=== PATIENT | male | born 1940 | race Caucasian/White ===

== ENCOUNTER → 2017-09-23 | Outpatient (CLI) | payer OTHER, MEDICARE ==
[~2017-09-23] MED LIST: ASPI81TA28 PO; COEN1CAP17 PO; LISI-787 PO; LPR25 PO; OMEG10007 PO; SIMV80TA2 PO; TAMS0.4C38 PO
== END | disposition home or self-care (01) ==
LOC: C.PATHSPEC 16:45
PROVIDERS: ATTEND Dermatology
DX: L57.0 Actinic keratosis (principal)

== ENCOUNTER 2019-02-24 09:14 | Inpatient (IN) ==
--- NOTE | 2019-02-05 10:46 | Anesthesiology Consultation ---
Date of Service February 05, 2019 Assessment & Plan (1) Encounter for pre-operative examination: Chart Review Chart Review: Acceptable Risk for Surgery and Patient NOT seen in Pre Admission Testing History Surgery Operation Date: 02/24/19 11:20 Proposed Procedures p Right Robotic Video Assisted Thoracoscopy with Right Upper Lobectomy with Mediastinal Lymphadenectomy - Nathan Fong MD, FACS Height/Weight Height: 5 ft 10 in Weight: 79.379 kg Allergies Allergy/AdvReac Type Severity Reaction Status Date / Time No Known Allergies Allergy Verified 02/05/19 10:18 Medications Home Medications Medication Instructions Recorded Confirmed Last Taken coenzyme Q10 200 mg capsule 200 mg PO DAILY cap 01/06/19 02/05/19 Unknown lisinopril 20 mg tablet 20 mg PO BID #180 tab 01/06/19 02/05/19 02/05/19 metoprolol tartrate 25 mg tablet 25 mg PO BID #180 tab 01/06/19 02/05/19 02/05/19 metoprolol tartrate 50 mg tablet 50 mg PO BID #180 tab 01/06/19 02/05/19 simvastatin 80 mg tablet 80 mg PO HS #90 tab 01/06/19 02/05/19 02/04/19 lorazepam 0.5 mg tablet 0.5 mg PO BID PRN #30 tab 01/18/19 02/05/19 Unknown amlodipine 2.5 mg PO QPM 02/05/19 02/05/19 02/04/19 aspirin [Aspir-81] 81 mg PO DAILY 02/05/19 02/05/19 02/05/19 citalopram 10 mg PO QAM 02/05/19 02/05/19 02/05/19 finasteride 5 mg PO QPM 02/05/19 02/05/19 02/04/19 tamsulosin 0.4 mg PO QPM 02/05/19 02/05/19 02/04/19 Past Medical History Medical History Anemia hgb stable in 10-11 range per chart review Anxiety CKD (chronic kidney disease) baseline creatinine 1.5-1.8 per chart review Enlarged prostate History of skin cancer Hyperlipidemia Hypertension Lung mass Past Family History Family History Other Family history of cancer in mother Past Surgical History Surgical History History of colonoscopy History of left cataract surgery History of right cataract surgery History of tonsillectomy Social History Smoking Status: Former smoker tobacco type: cigarettes Smoking cigarettes per day: LESS THAN 20 Hx Alcohol Use: Yes Alcohol type: wine alcohol intake frequency: other Hx Substance Use: No substance use type: does not use Testing Laboratory Results 02/04/19 WBC 8.74 H/H 10.7/35.0 PLATELETS 222 SODIUM 139 POTASSIUM 4.6 CHLORIDE 109 CO2 25 BUN 34 CREATININE 1.48 GLUCOSE 105 PT 10.6 PTT 27.5 INR 1.0 Electrocardiogram Date: 02/04/19 Findings: + NSR @ (60) Chest X-Ray Date: 01/26/19 Atherosclerosis of the aortic arch. Cardiac silhouette normal in size. Re- demonstration of the right upper lung mass. This consistent with primary bronchogenic neoplasm until proven otherwise. Other Testing PET CT skull to thigh: 02/01/19: Initial PET/CT demonstrates FDG avid 4.7 cm right apical lung mass consistent with primary bronchogenic neoplasm. Mildly FDG avid right hilar lymph node suspicious for metastatic involvement. No additional sites of disease.
[~2019-02-24 09:14] MED LIST changes: -ASPI81TA28 PO; -COEN1CAP17 PO; -LISI-787 PO; -LPR25 PO; +LR 15ML/HR IV SCH; -OMEG10007 PO; -SIMV80TA2 PO; -TAMS0.4C38 PO
[2019-02-24] MEDS ORDERED: LIDOCAINE HCL 2% 2 ML VIAL/AMP(20MG/ML) INFIL ONE (10:10)
[2019-02-24] MEDS ORDERED: PROPOFOL IV EMULSION 10 MG/ML 20 ML VIAL IV ONE (10:10)
[2019-02-24] MEDS ORDERED: ONDANSETRON INJ 2 MG/ML 2 ML VIAL ONE (10:10)
[2019-02-24] MEDS ORDERED: MIDAZOLAM HCL 1 MG/ML 2ML VIAL ONE (10:10)
[2019-02-24] MEDS ORDERED: fentaNYL citrate 100 MCG/2 ML VIAL ONE ×3 (10:10→15:38)
[2019-02-24] MEDS ORDERED: ROCURONIUM BROMIDE 10 MG/ML 5 ML VIAL ONE (10:10)
[2019-02-24] MEDS ORDERED: ATROPINE SULFATE 0.1 MG/ML 10ML SYR IV PRN (10:27)
[2019-02-24] MEDS ORDERED: ONDANSETRON INJ 2 MG/ML 2 ML VIAL IV PRN ×2 (10:27→16:59)
[2019-02-24] MEDS ORDERED: ePHEDrine sulfate 50 MG/ML AMP IV PRN (10:27)
--- NOTE | 2019-02-24 10:32 | History & Physical Bridge Note ---
Date of Service February 24, 2019 History & Physical Bridge Note I have examined the patient, reviewed the History & Physical and in the interval since the performance of the History & Physical I have noted the following changes of clinical significance: no changes noted
[2019-02-24] MEDS ORDERED: SODIUM CHLORIDE 0.9% PF 50 ML VIAL ONE (10:49)
[2019-02-24] MEDS ORDERED: BUPIVACAINE 0.5 % 5 MG/1 ML MPF 30ML VIAL ONE (10:49)
[2019-02-24] MEDS ORDERED: BUPIVACAINE LIPOSOME 1.3% 266 MG/20 ML VIAL ONE (10:50)
[2019-02-24] MEDS ORDERED: CEFAZOLIN 2,000 MG/15 ML IV PUSH IV ONE (11:07)
[2019-02-24] MEDS ORDERED: CEFAZOLIN 250 MG/ML 1 GM VIAL ONE (12:04)
[2019-02-24] MEDS ORDERED: PHENYLEPHRINE 100MCG/ML 5ML SYR ONE (12:18)
[2019-02-24] MEDS ORDERED: ePHEDrine sulfate 50 MG/ML AMP ONE (12:18)
[2019-02-24] MEDS ORDERED: SURGICEL ABSORB HEMOSTAT 2IN X 14IN TOP ONE (12:41)
[2019-02-24] MEDS ORDERED: NEOSTIGMINE METHYLSULFATE 5 MG/5 ML SYR ONE (14:50)
[2019-02-24] MEDS ORDERED: GLYCOPYRROLATE 0.2 MG/ML VIAL ONE (14:50)
[2019-02-24] MEDS ORDERED: METOCLOPRAMIDE HCL INJ 5 MG/ML 2 ML VIAL IV ONE (15:20)
[2019-02-24] MEDS: fentaNYL citrate 100 MCG/2 ML VIAL IV PRN ×4 (15:40→15:55)
--- NOTE | 2019-02-24 15:48 | XRay Report ---
XR chest 1V portable CLINICAL HISTORY: RUL COMPARISON STUDY: Chest radiograph February 10, 2019. PET/CT February 01, 2019. FINDINGS: Right apical chest tube is in place. Postoperative findings within the right lung are noted . A small right apical pneumothorax with pleural separation of 5 mm is noted. There is a trace left p leural effusion. Lung volumes are diminished. Left basilar opacity is noted. There is no evidence for pulmonary edema. Cardiomegaly is again noted. IMPRESSION: 1. Right apical chest tube in place. Small right apical pneumothorax. 2. Mild left basilar opacity and a suspected trace left pleural effusion. Electronically signed by: Alonso Collazo M.D. 02/24/2019 3:46 PM
[2019-02-24] MEDS: HYDROmorphone INJ 1 MG/ML SYRINGE IV PRN ×4 (16:00→16:15)
--- NOTE | 2019-02-24 16:08 | Anesthesiology Progress Note ---
Date of Service February 24, 2019 Anesthesia Post Procedure Vital Signs Vital Signs: Temp Pulse Resp BP Pulse Ox 02/24/19 09:53 36.6 C 63 16 140/76 97 Transfer of Care Handoff Completed per policy Notes Mental Status: alert / awake / arousable Patient Amnestic to Procedure: Yes Nausea / Vomiting: adequately controlled Pain: adequately controlled Airway Patency, RR, SpO2: stable & adequate BP & HR: stable & adequate Hydration State: stable & adequate Anesthetic Complications: no major complications apparent and Pt Satisfied with anesthetic care
--- NOTE | 2019-02-24 16:12 | Post Operative Brief Note ---
PG Immediate Post Op with CF Date of Surgery February 24, 2019 Pre & Post Diagnosis Operation Date: 02/24/19 11:20 Pre-Op Diagnosis: Right Lung Mass, Mediastinal Adenopathy Post-Op Diagnosis: non-small cell lung ca RUL Procedure Operation Date: 02/24/19 11:20 Actual Procedures p Right Robotic Video-Assisted Thoracoscopy, Right Upper Lobectomy,Right Upper Lobe Biopsy, and Mediastinal Lymphadenectomy(Right) - Nathan Fong MD, FACS Surgeon Nathan Fong MD, FACS Gravity Flow Irrigator Estelita ALANIZ Estimated Blood Loss 100 Findings Consistent with Post-Op Diagnosis Specimens Specimen Description: Frozen 1: Right Upper Lobe Mass - Need Diagnosis 2: Right Upper Lobe for Bronchial Margins - Need Diagnosis Permanent A: R9 Lymph Node x2 B: Level 7 Lymph Node x2 C: R8 Lymph Node x2 D: R11 Lymph Node x6 E: R10 Lymph Node x8 F: R4 Lymph Node G: R2 Lymph Node Culture 1: Right Upper Lobe Mass Drains Chest Tube (24 r. Thal chest tube) and Munoz Catheter (16 Fr. Munoz catheter)
--- NOTE | 2019-02-24 16:41 | Anesthesiology Progress Note ---
Date of Service February 24, 2019 Anesthesia Post Procedure Vital Signs Vital Signs: Temp Pulse Pulse Resp BP Pulse Ox 02/24/19 16:10 36 C L 70 16 100/62 97 02/24/19 16:00 66 16 106/52 L 96 02/24/19 15:50 68 18 106/60 98 02/24/19 15:40 68 18 117/61 98 02/24/19 15:30 71 16 108/63 100 02/24/19 15:24 36 C L 75 16 121/77 100 02/24/19 09:53 36.6 C 63 16 140/76 97 Pain Intensity Right Upper Lateral Chest: Pain Intensity: 4 Transfer of Care Handoff Completed per policy Notes Mental Status: alert / awake / arousable Patient Amnestic to Procedure: Yes Nausea / Vomiting: adequately controlled Pain: adequately controlled Airway Patency, RR, SpO2: stable & adequate BP & HR: stable & adequate Hydration State: stable & adequate Anesthetic Complications: no major complications apparent and Pt Satisfied with anesthetic care Notes: The patient is awake and his vital signs are stable. He has some incision site pain but is otherwise comfortable.
[2019-02-24] MEDS ORDERED: LORazepam 0.5 MG TAB PO PRN (16:59)
[2019-02-24] MEDS: MoRPHine SULFATE 2 MG/ML CARP IV PRN ×2 (17:40→22:53)
[2019-02-24] MEDS: METOCLOPRAMIDE HCL INJ 5 MG/ML 2 ML VIAL IV SCH (17:41)
[2019-02-24] MEDS: ACETAMINOPHEN 1,000 MG/100 ML VIAL IV SCH (18:28)
[2019-02-24] MEDS: OXYCODONE HCL IR 5 MG TAB (IMMEDIATE RELEASE) PO PRN (18:56)
--- NOTE | 2019-02-24 20:23 | Operative Report ---
DATE OF OPERATION: 02/24/2019 PREOPERATIVE DIAGNOSIS: Hypermetabolic mass, right upper lobe. POSTOPERATIVE DIAGNOSIS: Nonsmall cell lung carcinoma, right upper lobe. PROCEDURES: 1. Robot-assisted thoracoscopic excisional biopsy, right upper lobe mass. 2. Robot-assisted thoracoscopic right upper lobectomy and mediastinal lymphadenectomy. SURGEON: Nathan Fong MD. SERVICE PLUMBER: CORBIN Thomas. ANESTHESIA: General anesthesia, endotracheal double lumen tube. SPECIFICS OF PROCEDURE AND FINDINGS: Mr. Poole is a remarkably preserved 78-year-old male who was found to have a hypermetabolic mass in his right upper lobe. We worked him up and felt he would be a candidate for resection. I did an endobronchial ultrasound and did not find evidence of metastases in his mediastinal lymph nodes. On 02/24/2019, the patient was brought to the operating room and I performed a robot-assisted thoracoscopic excisional biopsy. The mass was simply too large for us to wedge out. I tried this, but we could not get around the entire mass as it would require removing half of the upper lobe. For this reason, I did an incisional biopsy and sent off a good amount of tissue; however, Dr. Vincenzo Bray from Pathology had difficulty stating whether this was a malignant process or not. For this reason, I elected to proceed with a right upper lobectomy as I felt sure based on his history of having no symptoms whatsoever and the appearance of this radiographically, we were dealing with a nonsmall cell lung carcinoma. We then performed an uncomplicated right upper lobectomy and mediastinal lymphadenectomy. There were few things to note and one was that he had calcified lymph nodes which were quite stuck, especially to the level 10 area, but we got these out. We did an Exparel block. He tolerated it well. PROCEDURE: The patient was brought to the operating room, laid in supine position. General anesthesia induced and endotracheal intubation performed with a double lumen tube. He was then placed in a left lateral decubitus position and he was administered prophylactic antibiotics. After prepped and draped in usual sterile fashion, timeout was called. We then placed a camera port at the seventh interspace and insufflated with CO2. Upon going in, we could see that there were really no adhesions whatsoever. We were able to see this mass immediately but it was not stuck to any parietal pleura. An 8 mm port was then placed anteriorly at about the seventh interspace just above the costal margin and we put another 8 mm port posteriorly in the seventh interspace and then put a 5 mm thoracic grasper closer to the spine from the lower interspace. I placed a needle and we were easily able to see this mass. I grasped it and we tried to wedge this out, but we were unable to do so. It was ripping the lung and we could not get all the way around this. For this reason, using the electrocautery, I wedged out a generous section and sent it for frozen section. While waiting for this, we continue taking down the inferior pulmonary ligament, biopsied level 7, 8, 9 nodes after cleaning up the level 7 subcarinal lymph node station. It was here that we saw how adherent and hard these lymph nodes were. By this time, we got the frozen section back, which showed no evidence of cancer; however, this mass was very large and he had no other symptoms. I made a decision that we were going to proceed with a lobectomy. I continued my dissection up and dissected out the level 10 node as well as level 2 and 4 nodes and 11 and 12 nodes. By removing these nodes, I opened up things quite nicely. I took the superior pulmonary vein with an Endo-DAVID stapler. This opened up the arteries nicely. I took the 3 right upper lobe arteries individually using the Endo-DAVID stapler. This worked out very nicely and then I was able to clean the bronchus off with some very hard and adherent lymph nodes and fired an Endo-DAVID stapler across the bronchus. This left us with just the fissures and we were able to complete these using the stapler. I was quite pleased with the case except for the fact that the middle lobe appeared to be on a pedicle. I was concerned about this, so I took after inflating the lung and seeing where it lay, I took the periphery of the upper lobe and middle lobe medially and stapled it together with single Endo-DAVID staple load. I then irrigated out the chest and saw no air leak at all. 266 mg of Exparel and 20 mL of solution had been mixed with 30 mL of 0.5% bupivacaine and 250 mL of normal saline I injected each of the port sites before we performed this operation and we also performed an intercostal nerve block from the 2nd through 11th rib. Of note, is that we had created an assistance port above the costal margin on the right, down a few interspaces. At the end of the case, we could see there was no air leak. Chest tube was directed towards the anterior thoracoscopy port towards the apex and sutured in place with heavy silk suture. A 0 Vicryl was used to close the muscle layers of the assistance port after we had used an Endobag and pulled the specimen out, enlarged it to about 4 cm. Each of the port sites were then closed with 4-0 Monocryl in running subcuticular fashion. The patient had no air leak and looked quite good at conclusion of the case. I attest to the content of the Intraoperative Record and any orders documented therein. Any exception s are noted below.
[2019-02-24] MEDS: D5W AND 1/2NSS 1,000 ML IV SCH (20:58)
[2019-02-24] MEDS: DOCUSATE SODIUM 100 MG CAP PO SCH (20:58)
[2019-02-24] MEDS: TAMSULOSIN HCL 0.4 MG CAP PO SCH (20:58)
[2019-02-24] MEDS: METOPROLOL TARTRATE 25 MG TAB PO SCH (20:59)
[2019-02-24] MEDS: SIMVASTATIN 80 MG TAB PO SCH (20:59)
[2019-02-24] MEDS: FINASTERIDE 5 MG TAB PO SCH (20:59)
[2019-02-24] MEDS: AMLODIPINE BESYLATE 5 MG TAB PO SCH (20:59)
[2019-02-24] MEDS ORDERED: METOPROLOL TARTRATE 50 MG TAB PO SCH (21:00)
[2019-02-24] MEDS: LISINOPRIL 20 MG TAB PO SCH (21:00)
[2019-02-25] MEDS: METOCLOPRAMIDE HCL INJ 5 MG/ML 2 ML VIAL IV SCH ×2 (01:11→08:09)
[2019-02-25] MEDS: ACETAMINOPHEN 1,000 MG/100 ML VIAL IV SCH (02:28)
[2019-02-25] MEDS: D5W AND 1/2NSS 1,000 ML IV SCH (05:33)
[2019-02-25] MEDS: MoRPHine SULFATE 2 MG/ML CARP IV PRN ×2 (05:36→07:40)
[2019-02-25 06:13] LABS: Basophils # (auto) 0.02 K/uL (0-0.2); Basophils % (auto) 0.2 %; Eosinophils # (auto) 0.18 K/uL (0-0.5); Eosinophils % (auto) 1.5 %; Hematocrit (blood only) 29.7 % (42-52); Hemoglobin 9.1 g/dL (14.0-18.0); Immature Granulocytes # (auto) 0.03 K/uL (0.00-0.02); Immature Granulocytes % (auto) 0.3 %; Lymphocytes # (auto) 1.49 K/uL (1.2-3.4); Lymphocytes % (auto) 12.6 %; Mean Corpuscular Volume 86.8 fL (80-100); Mean Platelet Volume 9.9 fL (7.4-10.4); Monocytes # (auto) 0.91 K/uL (0.11-0.59); Monocytes % (auto) 7.7 %; Neutrophils # (auto) 9.16 K/uL (1.4-6.5); Neutrophils % (auto) 77.7 %; Platelet Count 194 K/uL (130-400); RDW Coefficient of Variation 15.2 % (11.5-14.5); RDW Standard Deviation 48.5 fL (36.4-46.3); Red Blood Count 3.42 M/uL (4.7-6.1); White Blood Count 11.79 K/uL (4.8-10.8)
[2019-02-25 06:22] LABS: Mean Corpuscular Hgb Conc 30.6 g/dL (32-36)
[2019-02-25 06:29] LABS: BUN Creatinine Ratio 18.2 (10-20); Calcium 8.5 mg/dl (8.5-10.1); Creatinine Clr Calc Pharmacy 33.6 ml/min; Est GFR (Non-African American) 34.5; Potassium 4.8 mmol/L (3.5-5.1)
--- NOTE | 2019-02-25 07:21 | XRay Report ---
XR chest 1V portable HISTORY: 78 years-old Male RUL postoperative changes of the right lung COMPARISON: Chest radiograph 02/24/2019 TECHNIQUE: Portable AP view of the chest FINDINGS: Cardiac silhouette is enlarged, unchanged. Stable positioning of the right-sided chest tube. Tiny rig ht apical pneumothorax redemonstrated, pleural separation of 3 mm. Pulmonary vascular congestion with bibasilar opacities, progressed on the right. The lungs are hypoinflated. Mild gaseous distention of the stomach. Degenerative changes of the shoulders and spine. IMPRESSION: 1. Stable positioning of the right-sided chest tube with tiny right apical pneumothorax. 2. Cardiomegaly with pulmonary vascular congestion. 3. Bibasilar opacities redemonstrated, progressed about the right lung base. The above report was generated using voice recognition software. It may contain grammatical, syntax o r spelling errors. Electronically signed by: Gino Olivares M.D. 02/25/2019 7:20 AM
[2019-02-25] MEDS: METOPROLOL TARTRATE 25 MG TAB PO SCH ×2 (08:08→21:03)
[2019-02-25] MEDS: ASPIRIN 81 MG ECTAB PO SCH (08:08)
[2019-02-25] MEDS: LISINOPRIL 20 MG TAB PO SCH ×2 (08:08→21:04)
[2019-02-25] MEDS: DOCUSATE SODIUM 100 MG CAP PO SCH ×2 (08:09→21:03)
[2019-02-25] MEDS: CITALOPRAM 20 MG TAB PO SCH (08:09)
[2019-02-25] MEDS: ENOXAPARIN INJ 40 MG/0.4 ML SYR SQ SCH (08:09)
[2019-02-25] MEDS: ACETAMINOPHEN 325 MG TAB PO SCH ×3 (08:17→21:02)
[2019-02-25] MEDS ORDERED: NON-FORMULARY MEDICATION (Coenzyme Q10 200 MG) PO SCH (09:00)
--- NOTE | 2019-02-25 09:39 | Anesthesiology Progress Note ---
Date of Service February 25, 2019 Anesthesia Post Procedure Vital Signs Vital Signs: Temp Pulse Pulse Resp BP BP Pulse Ox 02/25/19 08:58 37.5 C 80 20 101/58 L 92 02/25/19 07:06 36.8 C 78 18 109/63 93 02/25/19 03:49 36.9 C 72 19 115/62 92 02/25/19 01:53 93 02/25/19 01:52 37.4 C 78 19 114/61 85 L 02/25/19 00:48 37.2 C 76 19 106/58 L 92 02/24/19 22:50 37.2 C 72 16 118/58 L 02/24/19 20:51 36.7 C 76 16 102/58 L 95 02/24/19 19:52 36.6 C 70 16 109/51 L 97 02/24/19 18:50 36.6 C 68 16 112/52 L 96 02/24/19 17:50 36.6 C 70 16 115/64 96 02/24/19 16:50 36.6 C 76 18 103/54 L 93 02/24/19 16:30 74 16 105/56 L 96 02/24/19 16:20 72 16 104/53 L 98 02/24/19 16:10 36 C L 70 16 100/62 97 02/24/19 16:00 66 16 106/52 L 96 02/24/19 15:50 68 18 106/60 98 02/24/19 15:40 68 18 117/61 98 02/24/19 15:30 71 16 108/63 100 02/24/19 15:24 36 C L 75 16 121/77 100 02/24/19 09:53 36.6 C 63 16 140/76 97 Pain Intensity Right Upper Lateral Chest: Pain Intensity: 5 Notes Mental Status: alert / awake / arousable and participated in evaluation Patient Amnestic to Procedure: Yes Nausea / Vomiting: adequately controlled Pain: adequately controlled Airway Patency, RR, SpO2: stable & adequate BP & HR: stable & adequate Hydration State: stable & adequate Anesthetic Complications: no major complications apparent and Pt Satisfied with anesthetic care
[2019-02-25] MEDS: OXYCODONE HCL IR 5 MG TAB (IMMEDIATE RELEASE) PO PRN ×2 (12:52→21:02)
--- NOTE | 2019-02-25 20:47 | Progress Note ---
DATE: 02/25/2019 HISTORY OF PRESENT ILLNESS: Mr. Poole is 1 day status post a robot-assisted thoracoscopic right upper lobectomy with mediastinal lymphadenectomy for nonsmall cell lung carcinoma. The patient is having some pain which is a bit surprising as it felt like we had given him a complete block. At any rate, he has no air leak. He has some serous drainage which is not very much. His x-ray looks good. He has been ambulating in the hallway. He is tolerating a regular diet. We left the Munoz catheter in, as he has had problems with retention in the past but was on Flomax and today he has been able to void. ASSESSMENT AND PLAN: Postop day #1, status post robot-assisted thoracoscopic right upper lobectomy with mediastinal lymphadenectomy. We may discharge him tomorrow or the next day depending on how he looks. I think it would be very helpful to get his chest tube out.
[2019-02-25] MEDS: TAMSULOSIN HCL 0.4 MG CAP PO SCH (21:03)
[2019-02-25] MEDS: SIMVASTATIN 80 MG TAB PO SCH (21:03)
[2019-02-25] MEDS: FINASTERIDE 5 MG TAB PO SCH (21:03)
[2019-02-25] MEDS: AMLODIPINE BESYLATE 5 MG TAB PO SCH (21:03)
[2019-02-26] MEDS: ACETAMINOPHEN 325 MG TAB PO SCH ×4 (01:05→19:24)
--- NOTE | 2019-02-26 07:29 | XRay Report ---
XR chest 1V portable HISTORY: Postop. Right upper lobectomy. COMPARISON: Chest 02/25/2019. FINDINGS: Right chest tube terminates in the right lung apex. No definite pneumothorax identified. Vo lume loss within the right hemithorax consistent with a postoperative change. Right perihilar airspac e opacity persists. The heart remains mildly enlarged. There are low lung volumes with mild pulmonary vascular congestion. IMPRESSION: Right chest tube terminates in the right lung apex. No definite pneumothorax. Pulmonary vascular curtis estion persists. Electronically signed by: Cong Beckwith M.D. 02/26/2019 7:28 AM
[2019-02-26] MEDS: LISINOPRIL 20 MG TAB PO SCH ×2 (08:45→20:57)
[2019-02-26] MEDS: CITALOPRAM 20 MG TAB PO SCH (08:46)
[2019-02-26] MEDS: DOCUSATE SODIUM 100 MG CAP PO SCH ×2 (08:46→20:58)
[2019-02-26] MEDS: METOPROLOL TARTRATE 25 MG TAB PO SCH (08:46)
[2019-02-26] MEDS: ASPIRIN 81 MG ECTAB PO SCH (08:46)
[2019-02-26] MEDS: ENOXAPARIN INJ 40 MG/0.4 ML SYR SQ SCH (08:46)
--- NOTE | 2019-02-26 09:30 | XRay Report ---
XR chest 1V portable HISTORY: 78 years-old Male chest tube removal status post removal of the right-sided chest tube COMPARISON: Chest radiograph 02/26/2019 at 7:00 AM TECHNIQUE: Portable AP view of the chest FINDINGS: Cardiomediastinal and hilar silhouettes are unchanged. Postoperative changes of the right hemithorax. Persistent right perihilar densities. Low lung volumes with mild pulmonary vascular congestion. Stat us post removal of the right-sided chest tube. No definite residual pneumothorax. Degenerative change s of the shoulders and spine. Mild gaseous distention of the stomach. IMPRESSION: Postoperative changes of the right lung redemonstrated. Status post removal of the right- sided chest tube without pneumothorax identified. The above report was generated using voice recognition software. It may contain grammatical, syntax o r spelling errors. Electronically signed by: Gino Olivares M.D. 02/26/2019 9:28 AM
[2019-02-26] MEDS ORDERED: METOPROLOL TARTRATE 1 MG/ML VIAL IV STA ×2 (11:21→12:51)
--- NOTE | 2019-02-26 11:29 | Urology Consultation ---
Date of Consultation February 26, 2019 Assessment & Plan (1) Postoperative urinary retention: POD #2 s/p thoracic surgery with UR. Indwelling Munoz draining clear yellow urine, not bothersome. Recommend maintaining Munoz x 7-10 days. Will arrange outpatient TOV and follow up in our clinic. Continue Tamsulosin. Thanks for allowing us to participate in the inpatient care of Mr. Poole. Please contact our service if we can be of further assistance during hospitalization. History of Present Illness Attending Physician: Nathan Fong MD, FACS History of Present Illness 78 YO male POD #2 s/p thoracic surgery with urinary retention. Has not been able to void spontaneously since anesthesia. Prior to surgery, baseline urination was good. Has never seen a Urologist, takes Tamsulosin per PCP x several years which works well. Feeling well today. No urinary pain. Munoz in place, not bothersome. No hematuria. Allergies Allergy/AdvReac Type Severity Reaction Status Date / Time No Known Allergies Allergy Verified 02/24/19 09:48 Home Medications Home Medications Medication Instructions Recorded Confirmed Type lisinopril 20 mg tablet 20 mg PO BID #180 tab 01/06/19 02/24/19 Rx metoprolol tartrate 25 mg tablet 25 mg PO BID #180 tab 01/06/19 02/24/19 Rx metoprolol tartrate 50 mg tablet 50 mg PO BID #180 tab 01/06/19 02/24/19 Rx simvastatin 80 mg tablet 80 mg PO HS #90 tab 01/06/19 02/24/19 Rx amlodipine 2.5 mg tablet 2.5 mg PO QPM #90 tab 02/06/19 02/24/19 Rx coenzyme Q10 200 mg capsule 200 mg PO DAILY #90 cap 02/06/19 02/24/19 Rx finasteride 5 mg tablet 5 mg PO QPM #90 tab 02/06/19 02/24/19 Rx lorazepam 0.5 mg tablet 0.5 mg PO BID PRN #60 tab 02/15/19 02/24/19 Rx aspirin [Aspir-81] 81 mg PO DAILY 02/24/19 02/24/19 History citalopram [Celexa] 15 mg PO QAM 02/24/19 02/24/19 History tamsulosin [Flomax] 0.4 mg PO QPM 02/24/19 02/24/19 History Patient History Medical History Anemia hgb stable in 10-11 range per chart review Anxiety CKD (chronic kidney disease) baseline creatinine 1.5-1.8 per chart review Enlarged prostate History of skin cancer Hyperlipidemia Hypertension Lung mass Surgical History History of colonoscopy History of left cataract surgery History of right cataract surgery History of tonsillectomy Family History Other Family history of cancer in mother Social History Preferred Language: Mongolian Communication Ability: Effective Senior Sql Developer Required: No Beliefs That Will Affect Care: None Current Living Situation: Spouse Other Information That Helps Us Care for You: No Feels Safe at Home: Yes Smoking Status: Former smoker (AGES 17-47) Tobacco Type: cigarettes ; Cigarettes Per Day: LESS THAN 20 ; Do You Dip or Chew Tobacco: No ; Smoking End Date: QUIT AGE 44 ; Second Hand Exposure: Yes ; Hx Alcohol Use: Yes Alcohol type: wine Hx Substance Use: No Review of Systems Constitutional: no fever and no chills Eyes: no worsening vision Ear, Nose, Mouth, Throat: no hearing loss Respiratory: no dyspnea s/p thoracic surgery Cardiovascular: no chest pain Gastrointestinal: no nausea and no vomiting Genitourinary: + as per Subjective / HPI Neurologic: no confusion Psychiatric: no problem reported Endocrine: + fatigue Physical Exam Constitutional: WD/WN, vitals as above ENMT: Ears: no hearing impairment Neck: normal visual inspection Respiratory: normal respiratory effort Cardiovascular: Vessels: no JVD Gastrointestinal (Abdomen): Inspection/Auscultation: abdomen not distended Percussion/Palpation: abdomen soft; abdomen nontender Psychiatric: A+Ox3, euthymic affect Genitourinary: bladder normal to palpation; no CVA tenderness Results & Data Vital Signs (Past 12 Hours) Vital Signs Temp Pulse Pulse Resp BP BP Pulse Ox 02/26/19 10:50 36.8 C 117 H 16 116/73 93 02/26/19 07:44 36.8 C 128 H 16 118/68 93 02/26/19 03:48 37.1 C 85 16 128/69 92 02/26/19 01:18 92 02/26/19 01:17 82 L
[2019-02-26 12:06] LABS: Eosinophils # (auto) 0.03 K/uL (0-0.5); Eosinophils % (auto) 0.2 %; Hematocrit (blood only) 28.7 % (42-52); Hemoglobin 9.3 g/dL (14.0-18.0); Immature Granulocytes # (auto) 0.05 K/uL (0.00-0.02); Immature Granulocytes % (auto) 0.4 %; Lymphocytes # (auto) 0.88 K/uL (1.2-3.4); Lymphocytes % (auto) 6.7 %; Mean Corpuscular Hgb Conc 32.4 g/dL (32-36); Mean Corpuscular Volume 84.4 fL (80-100); Mean Platelet Volume 10.8 fL (7.4-10.4); Monocytes # (auto) 1.07 K/uL (0.11-0.59); Monocytes % (auto) 8.2 %; Neutrophils # (auto) 11.02 K/uL (1.4-6.5); Neutrophils % (auto) 84.5 %; Platelet Count 192 K/uL (130-400); RDW Coefficient of Variation 15.2 % (11.5-14.5); White Blood Count 13.05 K/uL (4.8-10.8)
[2019-02-26 12:23] LABS: Alanine Aminotransferase 29 U/L (12-78); Albumin Level 2.7 gm/dl (3.4-5.0); Aspartate Aminotransferase 29 U/L (15-37); Blood Urea Nitrogen 41 mg/dl (7-18); Calcium 9.6 mg/dl (8.5-10.1); Carbon Dioxide 24 mmol/L (21-32); Chloride 101 mmol/L (98-107); Creatinine Clr Calc Pharmacy 30.9 ml/min; Est GFR (African American) 36.1; Est GFR (Non-African American) 31.2; Glucose 121 mg/dl (70-99); Potassium 4.7 mmol/L (3.5-5.1); Sodium 132 mmol/L (136-145)
[2019-02-26 12:27] LABS: Albumin Globulin Ratio 0.6 (0.9-2); Alkaline Phosphatase 104 U/L (45-117); Bilirubin,Total 0.4 mg/dl (0.2-1); Globulin 4.4 gm/dl (2.5-4.0); Total Protein 7.1 gm/dl (6.4-8.2); Troponin I < 0.015 ng/ml (0-0.045)
--- NOTE | 2019-02-26 12:42 | Hospitalist Consultation ---
Date of Consultation February 26, 2019 Assessment & Plan (1) A-fib: Discovered morning of 02/26 to be in a rapid A.fib, no history of such, no associated symptoms. monitor on telemetry Patient takes 150 mg of metoprolol/day - will give 5 mg IV metoprolol now - may have to use another agent if he is unable to spontaneously convert If A.fib persists today will start anticoagulation if ok with surgery - per discussion with cardiology this should be maintained for at least a month post op Trend troponin - initial negative (2) Post-operative state: Post op thoracotomy, resection and biopsy right upper lobe 02/23 Pain control per primary (3) Postoperative urinary retention: urology consulted Patient will discharge with Munoz (4) BPH (benign prostatic hyperplasia): continue tamsulosin (5) Hypercholesterolemia: continue statin (6) Chronic kidney disease: baseline creat around 1.5 avoid nephrotoxins where possible (7) JAY (acute kidney injury): Creat 1.98 - will give 1L LR @ 125 ml/hr History of Present Illness Attending Physician: Nathan Fong MD, FACS History of Present Illness Mr. Poole is POD #2 right lung thoracoscopy, lobectomy and biopsy. Today he became tachycardic and was found to be in an A.fib RVR. He was transferred to telemetry. He denies any discomfort and could not sense the dysrhythmia. Overall he was feeling well. His rate is running in the 1teens. Pmhx: non small cell lung cancer, htn, bph, hld, anemia Social: , quit smoking 35 years ago, occasional alcohol Family: brother of brain CA, mother had a blood cancer, father of heart disease. Allergies Allergy/AdvReac Type Severity Reaction Status Date / Time No Known Allergies Allergy Verified 02/24/19 09:48 Home Medications Home Medications Medication Instructions Recorded Confirmed Type lisinopril 20 mg tablet 20 mg PO BID #180 tab 01/06/19 02/24/19 Rx metoprolol tartrate 25 mg tablet 25 mg PO BID #180 tab 01/06/19 02/24/19 Rx metoprolol tartrate 50 mg tablet 50 mg PO BID #180 tab 01/06/19 02/24/19 Rx simvastatin 80 mg tablet 80 mg PO HS #90 tab 01/06/19 02/24/19 Rx amlodipine 2.5 mg tablet 2.5 mg PO QPM #90 tab 02/06/19 02/24/19 Rx coenzyme Q10 200 mg capsule 200 mg PO DAILY #90 cap 02/06/19 02/24/19 Rx finasteride 5 mg tablet 5 mg PO QPM #90 tab 02/06/19 02/24/19 Rx lorazepam 0.5 mg tablet 0.5 mg PO BID PRN #60 tab 02/15/19 02/24/19 Rx aspirin [Aspir-81] 81 mg PO DAILY 02/24/19 02/24/19 History citalopram [Celexa] 15 mg PO QAM 02/24/19 02/24/19 History tamsulosin [Flomax] 0.4 mg PO QPM 02/24/19 02/24/19 History Patient History Medical History Anemia hgb stable in 10-11 range per chart review Anxiety CKD (chronic kidney disease) baseline creatinine 1.5-1.8 per chart review Enlarged prostate History of skin cancer Hyperlipidemia Hypertension Lung mass Surgical History History of colonoscopy History of left cataract surgery History of right cataract surgery History of tonsillectomy Family History Other Family history of cancer in mother Social History Preferred Language: Andorran Communication Ability: Effective Customer Support Manager Required: No Beliefs That Will Affect Care: None Current Living Situation: Spouse Other Information That Helps Us Care for You: No Feels Safe at Home: Yes Smoking Status: Former smoker (AGES [age]) Tobacco Type: cigarettes ; Cigarettes Per Day: LESS THAN 20 ; Do You Dip or Chew Tobacco: No ; Smoking End Date: QUIT AGE 44 ; Second Hand Exposure: Yes ; Hx Alcohol Use: Yes Alcohol type: wine Hx Substance Use: No Review of Systems Review of Systems: All systems reviewed & are unremarkable except as noted in HPI & below Physical Exam Physical Exam: General: no distress Eyes: normal inspection, PERLL Respiratory: chest non tender, clear to auscultation, normal breath sounds, no respiratory distress, no accessory muscle use Cardiac: regular rate and rhythm, no rub or gallop, no murmur, no edema, no jvd GI/: active bowel sounds, no abd pain or tenderness, soft, non distended Extremities: normal range of motion, normal strength, non tender Neuro:oriented x 3, moves all extremities Psych: alert, normal mood and affect Skin: normal color, dry Results & Data Vital Signs (Past 12 Hours) Vital Signs Temp Pulse Pulse Pulse Resp BP BP 02/26/19 11:50 118 H 16 119/71 02/26/19 11:39 117 H 122 H 16 131/72 131/72 02/26/19 10:50 36.8 C 117 H 16 116/73 02/26/19 07:44 36.8 C 128 H 16 02/26/19 03:48 37.1 C 85 16 02/26/19 01:18 02/26/19 01:17 BP Pulse Ox 02/26/19 11:50 94 02/26/19 11:39 94 02/26/19 10:50 93 02/26/19 07:44 118/68 93 02/26/19 03:48 128/69 92 02/26/19 01:18 92 02/26/19 01:17 82 L PG Care Time/CCT Total # of Minutes Spent Total Time Spent with Patient: Total time spent is greater than 50% in coordination of care (as documented) at patient's floor/unit and/or counseling patient:
[2019-02-26] MEDS ORDERED: LACTATED RINGER'S 1,000 ML IV SCH (13:00)
[2019-02-26] MEDS ORDERED: AMIODARONE IV BOLUS / DRIP IV STA (14:26)
[2019-02-26] MEDS ORDERED: AMIODARONE / D5W 150 MG/100 ML BAG IV ONE (14:45)
[2019-02-26] MEDS ORDERED: AMIODARONE / D5W 360 MG/200 ML BAG IV SCH (15:00)
[2019-02-26] MEDS: METOPROLOL TARTRATE 50 MG TAB PO SCH (19:25)
[2019-02-26] MEDS: FINASTERIDE 5 MG TAB PO SCH (20:57)
[2019-02-26] MEDS: AMLODIPINE BESYLATE 5 MG TAB PO SCH (20:58)
[2019-02-26] MEDS: TAMSULOSIN HCL 0.4 MG CAP PO SCH (20:58)
[2019-02-26] MEDS: AMIODARONE / D5W 360 MG/200 ML BAG IV SCH (20:58)
[2019-02-26] MEDS ORDERED: METOPROLOL TARTRATE 25 MG TAB PO SCH (21:00)
[2019-02-26] MEDS: METOPROLOL TARTRATE 1 MG/ML VIAL IV PRN (22:13)
[2019-02-27] MEDS: ACETAMINOPHEN 325 MG TAB PO SCH ×4 (02:20→20:10)
[2019-02-27] MEDS: LISINOPRIL 20 MG TAB PO SCH ×2 (07:22→20:12)
[2019-02-27] MEDS: ASPIRIN 81 MG ECTAB PO SCH (07:23)
[2019-02-27] MEDS: DOCUSATE SODIUM 100 MG CAP PO SCH ×2 (07:23→20:53)
[2019-02-27] MEDS: METOPROLOL TARTRATE 50 MG TAB PO SCH ×2 (07:24→20:11)
[2019-02-27] MEDS: ENOXAPARIN INJ 40 MG/0.4 ML SYR SQ SCH (07:25)
--- NOTE | 2019-02-27 08:02 | XRay Report ---
SINGLE VIEW CHEST CLINICAL HISTORY: Status post lobectomy. FINDINGS: An AP, portable, upright chest radiograph is compared to study dated 02/26/2019 and correlate d with PET/CT dated 02/01/2019. The examination is degraded by portable technique and patient rotation . The heart is enlarged and there is atherosclerotic calcification of the thoracic aorta. The pulmon maxx vasculature is noncongested. 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 Again seen is postoperative change and volume loss from right upper lobe res ection The. There are small pleural effusions with bibasilar opacities. No pneumothorax is seen. The skeletal structures are osteopenic. The bony thorax is grossly intact. IMPRESSION: 1. Again seen are postoperative changes from right upper lobe resection. 2. There are small pleural effusions. Bibasilar opacities likely represent atelectasis. Clinical wendy elation will be required. 3. Cardiomegaly without radiographic evidence of congestive failure. Electronically signed by: Dru Tena M.D. 02/27/2019 8:01 AM
[2019-02-27] MEDS: AMIODARONE / D5W 360 MG/200 ML BAG IV SCH ×2 (09:30→20:55)
[2019-02-27 09:46] LABS: Creatinine Clr Calc Pharmacy 37.1 ml/min; Est GFR (African American) 45.1; Est GFR (Non-African American) 38.9; Potassium 4.4 mmol/L (3.5-5.1)
--- NOTE | 2019-02-27 09:57 | Progress Note ---
DATE: 02/27/2019 Mr. Poole is now 3 days status post his robot-assisted thoracoscopic right upper lobectomy. Chest x-ray looks very good today. His gastric distention is down. His right lung looks very good. He is still having a couple of problems. One problem is, he is still in atrial fibrillation and his rate is not controlled. I have taken a liberty of asking Dr. Red Marroquin to take a look at him. He feels fine, however. He sounds good on auscultation. He is on room air. He is ambulating in the hallway. The other problem is, he has an indwelling Munoz catheter. I had a long talk with the patient and his this morning. Overall, I think he looks good. I am a bit concerned about his renal function. He is making good urine. His BUN and creatinine were 41 and 1.97 yesterday. I will order a repeat in the morning.
[2019-02-27 09:59] LABS: Hematocrit (blood only) 30.2 % (42-52); Hemoglobin 9.7 g/dL (14.0-18.0); Mean Corpuscular Hgb Conc 32.1 g/dL (32-36); Mean Corpuscular Volume 82.3 fL (80-100); Mean Platelet Volume 11.4 fL (7.4-10.4); Platelet Count 245 K/uL (130-400); RDW Coefficient of Variation 15.3 % (11.5-14.5); RDW Standard Deviation 45.8 fL (36.4-46.3); Red Blood Count 3.67 M/uL (4.7-6.1); White Blood Count 12.67 K/uL (4.8-10.8)
--- NOTE | 2019-02-27 12:47 | Cardiology Consultation ---
Date of Consultation February 27, 2019 Assessment & Plan (1) A-fib: Development of atrial fibrillation is relatively common after a thoracotomy or the surgery performed. Despite high ventricular rates associated with his atrial fibrillation he was asymptomatic and hemodynamically stable. I would agree with initiation of amiodarone. He continues to be on amiodarone infusion which is likely to be finished today. I think he is having some good effect from the atrial fibrillation and is having less atrial fibrillation. I would continue with oral amiodarone 400 mg twice daily for perhaps 5 more days and then reduce it to 200 mg daily for several weeks. We can also increase his beta-juarez to his outpatient dose which was 75 mg twice daily. We will need to monitor him for symptoms worse signs of bradycardia as the amiodarone exerts more of an effect over time. We did discuss systemic anticoagulation in the plan is to start him on a novel oral anticoagulant when it is felt to be safe from a surgical standpoint. Both the amiodarone and anticoagulation may only be needed for a few weeks following his surgery. He can be monitored in the outpatient setting for recurrent atrial fibrillation or any other indications for continuing therapy at that time. There is no recent echocardiogram on record. In some respects this would be helpful in order to determine the likelihood of him returning to atrial fibrillation. I believe an echocardiogram is warranted at some point and could be obtained during this hospitalization. I do not believe this would affect our immediate recommendations for treatment of his atrial fibrillation. With initiation of anticoagulation his daily aspirin can be discontinued. History of Present Illness Reason for Consultation: Atrial fibrillation Requesting Physician: Hetal Attending Physician: Nathan Fong MD, [facility] History of Present Illness Patient is an 78-year-old gentleman who recently underwent a robot assisted lung resection for suspected cancer. In the postoperative. The patient did develop atrial fibrillation with rapid ventricular response. Patient was initiated on intravenous amiodarone and continued on oral beta blockade. It seems that he was not very symptomatic with the arrhythmia. The patient was not aware of an elevated heart rate. His recovery has been generally good and he has not been reporting symptoms of dyspnea or chest discomfort. At the time of the interview the patient claims to have been ambulatory around the flores without limiting dyspnea and no symptoms of chest pain. He generally does not have symptoms of dizziness or lightheadedness. His was present for today's interview states that at times his blood pressure is low and he does report feeling poorly when his blood pressure is around 100 systolic. However, he did not endorse overt dizziness or lightheadedness. He did not appear to have orthostatic type symptoms. He cannot recall any irregularity in his pulse or higher heart rates prior to his surgery. He did have some hemoptysis leading up to the diagnosis of this lung mass. Otherwise he appears to be an active individual was accustomed to moderate activity without limitation. He did not report any symptoms of exertional dyspnea or chest discomfort. Allergies Allergy/AdvReac Type Severity Reaction Status Date / Time No Known Allergies Allergy Verified 02/24/19 09:48 Home Medications Home Medications Medication Instructions Recorded Confirmed Type lisinopril 20 mg tablet 20 mg PO BID #180 tab 01/06/19 02/24/19 Rx metoprolol tartrate 25 mg tablet 25 mg PO BID #180 tab 01/06/19 02/24/19 Rx metoprolol tartrate 50 mg tablet 50 mg PO BID #180 tab 01/06/19 02/24/19 Rx simvastatin 80 mg tablet 80 mg PO HS #90 tab 01/06/19 02/24/19 Rx amlodipine 2.5 mg tablet 2.5 mg PO QPM #90 tab 02/06/19 02/24/19 Rx coenzyme Q10 200 mg capsule 200 mg PO DAILY #90 cap 02/06/19 02/24/19 Rx finasteride 5 mg tablet 5 mg PO QPM #90 tab 02/06/19 02/24/19 Rx lorazepam 0.5 mg tablet 0.5 mg PO BID PRN #60 tab 02/15/19 02/24/19 Rx aspirin [Aspir-81] 81 mg PO DAILY 02/24/19 02/24/19 History citalopram [Celexa] 15 mg PO QAM 02/24/19 02/24/19 History tamsulosin [Flomax] 0.4 mg PO QPM 02/24/19 02/24/19 History Patient History Medical History Anemia hgb stable in 10-11 range per chart review Anxiety CKD (chronic kidney disease) baseline creatinine 1.5-1.8 per chart review Enlarged prostate History of skin cancer Hyperlipidemia Hypertension Lung mass Surgical History History of colonoscopy History of left cataract surgery History of right cataract surgery History of tonsillectomy Family History Other Family history of cancer in mother Social History Preferred Language: Chinese Communication Ability: Effective Engineering Project Manager Required: No Beliefs That Will Affect Care: None Current Living Situation: Spouse Other Information That Helps Us Care for You: No Feels Safe at Home: Yes Smoking Status: Former smoker (AGES [age]) Tobacco Type: cigarettes ; Cigarettes Per Day: LESS THAN 20 ; Do You Dip or Chew Tobacco: No ; Smoking End Date: QUIT AGE 44 ; Second Hand Exposure: Yes ; Hx Alcohol Use: Yes Alcohol type: wine Hx Substance Use: No Review of Systems Review of Systems: All systems reviewed & are unremarkable except as noted in HPI & below Some difficulty with urination. Currently Munoz catheter in place Physical Exam Physical Exam: The patient is alert and oriented. Mood and affect appeared normal. He answered all questions appropriately. HEENT: Pupils are equal and reactive to light and accommodation. Extraocular movements are intact. The sclerae are anicteric. Neuro: Cranial nerves intact Neck: Patient's neck is supple. He has palpable carotid pulses bilaterally without bruits on auscultation. There is no evidence of jugular venous distention. The thyroid is not enlarged. Lungs: He appears to have good air movement. Normal respiratory effort. No expiratory wheezing. Cardiac: Heart demonstrates a regular rate and rhythm. Normal S1 and S2. No murmurs on examination. Pulses: The patient has palpable radial pulses bilaterally that are equal in intensity Extremities: There was no evidence of hypoperfusion. There is no cyanosis or clubbing. There is no edema. Skin: I did not appreciate any rashes on examination today. Results & Data Vital Signs (Past 12 Hours) Vital Signs Temp Pulse Pulse Resp BP BP Pulse Ox 02/27/19 11:22 36.9 C 72 18 151/73 H 93 02/27/19 08:26 75 02/27/19 07:22 36.8 C 78 16 154/69 H 93 02/27/19 04:00 36.6 C 74 19 149/68 H 94 Laboratory Results Abnormal Lab Results 02/24/19 02/26/19 02/27/19 09:55 17:48 00:05 WBC RBC Hgb Hct MCV MCH MCHC RDW Std Deviation RDW Coeff of Rhett Plt Count MPV Sodium Potassium Chloride Carbon Dioxide Anion Gap BUN Creatinine Est Cr Clr Drug Dosing Est GFR ( Amer) Est GFR (Non-Af Amer) BUN/Creatinine Ratio Glucose Calcium Troponin I 0.043 0.048 H* Crossmatch See Detail 02/27/19 02/27/19 02/27/19 05:28 05:28 05:28 WBC 12.67 H RBC 3.67 L Hgb 9.7 L Hct 30.2 L MCV 82.3 MCH 26.4 MCHC 32.1 RDW Std Deviation 45.8 RDW Coeff of Rhett 15.3 H Plt Count 245 MPV 11.4 H Sodium 137 Potassium 4.4 Chloride 105 Carbon Dioxide 24 Anion Gap 9.0 BUN 31 H Creatinine 1.64 H D Est Cr Clr Drug Dosing 37.1 Est GFR ( Amer) 45.1 Est GFR (Non-Af Amer) 38.9 BUN/Creatinine Ratio 19.0 Glucose 111 H Calcium 10.0 Troponin I 0.042 Crossmatch Diagnostic Findings An echocardiogram was performed in [place] in 2006. This was reportedly normal. ECG Additional Comments: EKG did demonstrate atrial fibrillation and associated high ventricular rates. Nonspecific ST and T-wave changes. PG Care Time/CCT Total # of Minutes Spent Total Time Spent with Patient: Total time spent is greater than 50% in coordination of care (as documented) at patient's floor/unit and/or counseling patient:
--- NOTE | 2019-02-27 13:25 | Hospitalist Progress Note ---
Date of Service February 27, 2019 Assessment & Plan (1) A-fib: Discovered morning of 02/26 to be in a rapid A.fib, no history of such, no associated symptoms. monitor on telemetry Placed on amiodarone drip, continue metoprolol start NOAC when ok with surgery Trop peaked at 0.048 Echo pending Cardiology consulted (2) Post-operative state: Post op thoracotomy, resection and biopsy right upper lobe 8/6 Pain control per primary (3) Postoperative urinary retention: urology consulted Patient will discharge with Munoz (4) BPH (benign prostatic hyperplasia): continue tamsulosin (5) Hypercholesterolemia: continue statin (6) Chronic kidney disease: baseline creat around 1.5 avoid nephrotoxins where possible (7) JAY (acute kidney injury): Creat 1.98 - resolved to near baseline with IVF x 1L Subjective Mr. Poole remains in A.fib but is asymptomatic. Overall he feels well. Review of Systems Review of Systems: All systems reviewed & are unremarkable except as noted in HPI & below Physical Exam Physical Exam: General: no distress Eyes: normal inspection, PERLL Respiratory: chest non tender, clear to auscultation, normal breath sounds, no respiratory distress, no accessory muscle use Cardiac: irregular rate and rhythm, no rub or gallop, no murmur, no edema, no jvd GI/: active bowel sounds, no abd pain or tenderness, soft, non distended Extremities: normal range of motion, normal strength, non tender Neuro/Psych: alert and oriented x 3, normal mood and affect Skin: normal color, dry Results & Data Vital Signs (Past 12 Hours) Vital Signs Temp Pulse Pulse Resp BP BP Pulse Ox 02/27/19 11:22 36.9 C 72 18 151/73 H 93 02/27/19 08:26 75 02/27/19 07:22 36.8 C 78 16 154/69 H 93 02/27/19 04:00 36.6 C 74 19 149/68 H 94 PG Care Time/CCT Total # of Minutes Spent Total Time Spent with Patient: Total time spent is greater than 50% in coordination of care (as documented) at patient's floor/unit and/or counseling patient:
[2019-02-27] MEDS ORDERED: POLYETHYLENE (MIRALAX) 17 GM PACK PO PRN (13:28)
[2019-02-27] MEDS ORDERED: BISACODYL 10 MG SUPP PR PRN (13:29)
[2019-02-27] MEDS ORDERED: MAGNESIUM HYDROXIDE SUSP 30 ML UDC PO ONE (20:02)
[2019-02-27] MEDS: TAMSULOSIN HCL 0.4 MG CAP PO SCH (20:11)
[2019-02-27] MEDS: AMLODIPINE BESYLATE 5 MG TAB PO SCH (20:12)
[2019-02-27] MEDS: FINASTERIDE 5 MG TAB PO SCH (20:53)
[2019-02-27] MEDS: METOPROLOL TARTRATE 1 MG/ML VIAL IV PRN ×2 (21:21→23:25)
[2019-02-27] MEDS ORDERED: METOPROLOL TARTRATE 1 MG/ML VIAL IV STA (23:14)
[2019-02-28] MEDS: ACETAMINOPHEN 325 MG TAB PO SCH ×2 (01:37→09:35)
[2019-02-28 07:00] LABS: BUN Creatinine Ratio 21.7 (10-20); Calcium 9.2 mg/dl (8.5-10.1); Est GFR (African American) 47.9; Est GFR (Non-African American) 41.3; Potassium 4.1 mmol/L (3.5-5.1)
[2019-02-28] MEDS: AMIODARONE / D5W 360 MG/200 ML BAG IV SCH (09:02)
[2019-02-28] MEDS: ASPIRIN 81 MG ECTAB PO SCH (09:04)
[2019-02-28] MEDS: DOCUSATE SODIUM 100 MG CAP PO SCH (09:04)
[2019-02-28] MEDS: METOPROLOL TARTRATE 50 MG TAB PO SCH (09:05)
[2019-02-28] MEDS: LISINOPRIL 20 MG TAB PO SCH (09:06)
[2019-02-28] MEDS: ENOXAPARIN INJ 40 MG/0.4 ML SYR SQ SCH (09:06)
--- NOTE | 2019-02-28 10:42 | Cardiology Progress Note ---
Date of Service February 28, 2019 Assessment & Plan (1) A-fib: Patient has maintained sinus rhythm since yesterday afternoon. Overall he is feeling well. From a surgical standpoint he appears to be ready for discharge. I do not believe there is any cardiac reason to delay his discharge. He certainly is at risk of recurrent atrial fibrillation. However, this was well tolerated and I would expect less frequent and shorter episodes if he were to experience atrial fibrillation. I think it would be reasonable to continue on amiodarone for a few weeks. I will also prescribe him some anticoagulation, hopefully for a few weeks. I think that if he has no known episodes of atrial fibrillation over the next several weeks we could consider discontinuing this therapy altogether. I ordered him Eliquis 2.5 milligrams twice daily based on his degree of renal dysfunction I reduced his metoprolol to 50 milligrams twice daily I prescribed him amiodarone 200 milligrams twice daily for 2 weeks and then to be reduced to 200 milligrams daily I discontinued his aspirin, simvastatin and Celexa based on its interaction with these medications I prescribed him atorvastatin 40 milligrams daily as an alternative to his simvastatin. Subjective This more the patient claims to be feeling well. He states his breathing is at baseline. He has been ambulatory and is anxious to go home. Review of Systems Review of Systems: Per HPI. No sense of palpitation. No chest pain. Physical Exam Physical Exam: The patient is alert and oriented. Mood and affect appeared normal. He answered all questions appropriately. HEENT: Pupils are equal and reactive to light and accommodation. Extraocular movements are intact. The sclerae are anicteric. Neuro: Cranial nerves intact Cardiac: Heart demonstrates a regular rate and rhythm. Normal S1 and S2. No murmurs on examination. Pulses: The patient has palpable radial pulses bilaterally that are equal in intensity Skin: I did not appreciate any rashes on examination today. Results & Data Vital Signs (Past 12 Hours) Vital Signs Temp Pulse Pulse Resp BP Pulse Ox 02/28/19 08:09 36.7 C 80 18 128/74 96 02/28/19 03:00 36.9 C 77 16 132/76 94 02/27/19 23:25 130 H 02/27/19 22:54 36.5 C 132 H 18 136/90 94 Laboratory Results Abnormal Lab Results 02/28/19 06:03 Sodium 138 Potassium 4.1 Chloride 104 Carbon Dioxide 26 Anion Gap 8.0 BUN 34 H Creatinine 1.56 H Est Cr Clr Drug Dosing 39.0 Est GFR ( Amer) 47.9 Est GFR (Non-Af Amer) 41.3 BUN/Creatinine Ratio 21.7 H Glucose 119 H Calcium 9.2 ECG Additional Comments: Sinus rhythm. PG Care Time/CCT Total # of Minutes Spent Total Time Spent with Patient: Total time spent is greater than 50% in coordination of care (as documented) at patient's floor/unit and/or counseling patient:
--- NOTE | 2019-02-28 12:10 | Discharge Summary ---
DISCHARGE DIAGNOSES: 1. [id number] lung carcinoma, right upper lobe. 2. Postoperative atrial fibrillation. 3. Urinary retention. HOSPITAL COURSE: Cristian Poole is a delightful 78-year-old remarkably preserved ex-smoker who was found to have a hypermetabolic mass in his right upper lobe. His lung function looked quite good. I performed an endobronchial ultrasound to prove that his mildly hypermetabolic mediastinal nodes were negative for metastatic disease. We were satisfied that he did not have extrathoracic spread. He was brought to the operating room on 02/24/2019 and underwent an uncomplicated robot-assisted thoracoscopic right upper lobectomy with mediastinal lymphadenectomy. Blood loss was negligible. He really did not have an air leak. Frozen section showed this to be a [id number] lung carcinoma, but it is a complicated case. It had features of adenocarcinoma, squamous cell carcinoma, and perhaps even sarcomatoid carcinoma. Our margins were negative. I did a full lymph node dissection. The patient had negligible blood loss and did very well. I watched him overnight on the floor and was quite happy with him and removed his chest tube only to have him develop atrial fibrillation. He also had urinary retention although he was able to void after we placed a Munoz in him and removed it the following day. Unfortunately, he developed retention again. This has happened to him in the past. Dr. Red Marroquin from cardiology saw him and the patient converted to a sinus rhythm. We are going to continue an anticoagulant which we have cleared him to start today. The patient did have a fairly rapid rate for his heart rate, however, he was asymptomatic. In addition, we put the Munoz back in and he will be followed by the urologist and will see Dr. Thompson in the office. He will see Dr. Marroquin in the office. I will see the patient in 4 days with an x-ray. From a pulmonary standpoint, he did superbly. He was on room air. His x-ray looked quite good. He did have some trouble with constipation, but this resolved with cathartics. Overall, I think for an 78-year-old man he tolerated this quite well and actually fairly remarkable that given the extent of his surgery, his atrial fibrillation, and his urinary retention, the fact that we got him out in 4 days, I think, was commendable. I will see him back in the office in 4 days with an x-ray. He is to call me should he run into any problems.
== END 2019-02-28 12:03 | disposition home health service (06) | DRG 164 ==
LOC: ASU 09:14 → 3N 15:47 → 2S 02-26 10:56 → 2E 02-27 21:49